=== PATIENT | female | born 1945 | race Caucasian/White ===

== ENCOUNTER 2020-04-01 18:51 | Emergency (ER) | payer MEDICARE, OTHER ==
--- NOTE | 2020-04-01 19:36 | ED Physician Documentation ---
PD HPI NVD - Stated complaint Stated Complaint: FEVER, DIZZY - Chief complaint Chief Complaint: General - History obtained from History obtained from: Patient - History of Present Illness Timing - onset: Today (Early this morning/still during the night, she awoke from sleep with nausea vomiting and diarrhea. This continued through the day but has tapered down through the afternoon. Still some loose stool and nauseated but has not vomited for 2 to 3 hours) Timing - details: Abrupt onset, Still present (Less severe symptoms than this morning but still nauseated and feeling generally weak with some muscle cramping. No abdominal pain per se) Associated symptoms: Loss of appetite. No: Fever, Abdominal pain, Hematemesis, Melena, Near syncope / syncope (but with general weakness) Contributing factors: No: Sick contact, Bad food, Recent antibiotics Improved by: No: Vomiting Worsened by: Eating Similar symptoms before: Has not had sx before Recently seen: Surgery (She had fusion of her great toe 2 weeks ago and the wou nd is well-healing without any infection. She was not on any antibiotics.) Review of Systems Constitutional: reports: Fatigue. denies: Fever, Chills, Myalgias Nose: denies: Rhinorrhea / runny nose, Congestion Throat: denies: Sore throat Cardiac: denies: Chest pain / pressure, Palpitations Respiratory: denies: Dyspnea GI: reports: Nausea, Vomiting, Diarrhea. denies: Abdominal Pain, Abdominal Swelling, Hematemesis, Bloody / black stool : denies: Dysuria, Frequency Neurologic: reports: Generalized weakness. 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 : Other HEENT: None Psych: None Musculoskeletal: Osteoarthritis Derm: None - Past Surgical History Past Surgical History: Yes Ortho: Carpal Tunnel surgery /JOCKEY'S AGENT: Hysterectomy - Present Medications Home Medications: Ambulatory Orders Medication Instructions Recorded Confirmed Estradiol [Estrace] 0.5 mg PO DAILY 11/27/13 04/13/16 Fluconazole [Diflucan] 150 mg PO ONCE #1 tablet 11/27/13 04/13/16 Gabapentin [Neurontin] 300 mg PO DAILY 11/27/13 04/13/16 Bacillus Coagulans [Probiotic] 1 each PO DAILY 04/13/16 04/13/16 Nitrofurantoin Monohyd/M-Cryst 100 mg PO BID 7 Days capsule 04/13/16 [Macrobid 100 mg Capsule] [place]-3 Fatty Acids [Fish Oil] 300 mg PO DAILY 04/13/16 04/13/16 Omeprazole 20 mg PO DAILY 04/13/16 04/13/16 Phenazopyridine [Pyridium] 200 mg PO TID 6 Days tablet 04/13/16 Diphenoxylate/Atropine [Lomotil] 1 each PO QID PRN #12 tablet 04/01/20 Ondansetron Odt [Zofran] 4 mg TL Q6H PRN #10 tablet 04/01/20 - Allergies Allergies/Adverse Reactions: Allergies Allergy/AdvReac Type Severity Reaction Status Date / Time acetaminophen [From Vicodin] Allergy Emesis Verified 04/01/20 18:59 atorvastatin Allergy Emesis Verified 04/01/20 19:05 ciprofloxacin [From Cipro] Allergy Emesis Verified 04/01/20 18:59 hydrocodone [From Vicodin] Allergy Emesis Verified 04/01/20 18:59 nitrofurantoin Allergy Rash Verified 04/01/20 19:05 - Social History Does the pt smoke?: No Smoking Status: Never smoker Does the pt drink ETOH?: No Does the pt have substance abuse?: No - Immunizations Immunizations are current?: Yes - POLST Patient has POLST: No PD ED PE NORMAL - Vitals Vital signs reviewed: Yes - General General: Alert and oriented X 3, No acute distress, Well developed/nourished - HEENT HEENT: Pharynx benign. No: Moist mucous membranes - Neck Neck: Supple, no meningeal sign, No adenopathy - Cardiac Cardiac: No murmur. No: RRR (regular but tachycardic) - Respiratory Respiratory: Clear bilaterally - Abdomen Abdomen: Normal bowel sounds, Soft, Non tender, Non distended, No organomegaly - Female Female : Deferred - Rectal Rectal: Deferred - Back Back: No CVA TTP - Derm Derm: Normal color, Warm and dry - Extremities Extremities: Normal ROM s pain, No edema, No calf tenderness / cord - Neuro Neuro: Alert and oriented X 3, No motor deficit, Normal speech Results - Vitals Vitals: Vital Signs - 24 hr 04/01/20 04/01/20 04/01/20 18:59 21:16 22:31 Temperature 37.0 C Heart Rate 110 H 86 91 Respiratory 16 16 Rate Blood Pressure 129/77 126/57 L 123/55 L O2 Saturation 96 97 96 Oxygen O2 Source Room air - Labs Labs: Microbiology 04/01/20 21:37 Campylobacter Antigen Assay - Final Stool - Loose Consistency Laboratory Tests 04/01/20 04/01/20 04/01/20 19:16 20:31 20:31 WBC 8.4 RBC 4.69 Hgb 14.3 Hct 42.7 MCV 91.0 MCH 30.5 MCHC 33.5 RDW 12.5 Plt Count 187 MPV 9.8 Neut # (Auto) 7.5 H Lymph # (Auto) 0.4 L Elliott # (Auto) 0.3 Eos # (Auto) 0.2 Baso # (Auto) 0.0 Absolute Nucleated RBC 0.00 Nucleated RBC % 0.0 Sodium 136 Potassium 3.8 Chloride 100 L Carbon Dioxide 27 Anion Gap 9.0 BUN 18 Creatinine 0.8 Estimated GFR (MDRD) 70 L Glucose 120 H Calcium 8.7 Magnesium 1.8 Total Bilirubin 0.6 AST 22 ALT 23 Alkaline Phosphatase 61 Total Protein 7.1 Albumin 4.0 Globulin 3.1 Albumin/Globulin Ratio 1.3 Lipase 25 Urine Color YELLOW Urine Clarity HAZY Urine pH 6.0 Ur Specific [place] 1.025 Urine Protein NEGATIVE Urine Glucose (UA) NEGATIVE Urine Ketones 40 H Urine Occult Blood NEGATIVE Urine Nitrite NEGATIVE Urine Bilirubin NEGATIVE Urine Urobilinogen 0.2 (NORMAL) Ur Leukocyte Esterase TRACE H Urine RBC 0-5 Urine WBC 0-3 Ur Squamous Epith Cells FEW Squamous Amorphous Sediment Moderate Urine Bacteria Rare Ur Microscopic Review INDICATED Urine Culture Comments INDICATED PD MEDICAL DECISION MAKING - ED course Complexity details: re-evaluated patient (Feeling improved after IV fluids and medications. Abdomen is still not tender.), considered differential (Sounds likely to be a an acute gastroenteritis versus food intolerance. There is no tenderness on abdominal exam so lower suspicion for diverticulitis or appendicitis), d/w patient Departure - Departure Disposition: 01 Home, Self Care Clinical Impression: Nausea vomiting and diarrhea Condition: Stable Record reviewed to determine appropriate education?: Yes Instructions: ED Diet Vomiting Diarrhea Follow-Up: Deb Workman ARNP [Primary Care Provider] - Prescriptions: Diphenoxylate/Atropine [Lomotil] 1 each PO QID PRN #12 tablet PRN Reason: Diarrhea Ondansetron Odt [Zofran] 4 mg TL Q6H PRN #10 tablet PRN Reason: Nausea / Vomiting Comments: Small frequent fluids and bland food this evening and tomorrow. Ondansetron every 4-6 hours if needed for nausea. I would anticipate this being better into tomorrow. I wrote a prescription for some more ondansetron for nausea and Lomotil for diarrhea if this persist to some degree. Otherwise recheck if continued symptoms beyond 1 to 2 days or if you have worsening symptoms of belly pain fever persistent vomiting or other concerns. Your stool cultures will result tomorrow and will call you if any treatment is needed or indicated from those results. Discharge Date/Time: 04/01/20 22:41
[2020-04-01] MEDS ORDERED: SODIUM CHLORIDE 0.9% 1,000 ML IV STA (20:08)
[2020-04-01] MEDS ORDERED: KETOROLAC 15 MG/ML VIAL IVP STA (20:08)
[2020-04-01] MEDS ORDERED: ONDANSETRON 4 MG/2 ML VIAL IVP STA (20:08)
[2020-04-01 20:38] LABS: BASOPHILS % (AUTO) 0.4 %; EOSINOPHILS # (AUTO) 0.2 10^3/uL (0.0-0.7); EOSINOPHILS % (AUTO) 2.1 %; HGB - HEMOGLOBIN 14.3 g/dL (12.0-16.0); LYMPHOCYTES # (AUTO) 0.4 10^3/uL (1.5-3.5); LYMPHOCYTES % (AUTO) 4.8 %; MEAN CORPUSCULAR HEMOGLOBIN 30.5 pg (27.0-31.0); MEAN CORPUSCULAR HGB CONC 33.5 g/dL (32.0-36.0); MEAN PLATELET VOLUME 9.8 fL (7.9-10.8); MONOCYTES # (AUTO) 0.3 10^3/uL (0.0-1.0); MONOCYTES % (AUTO) 3.6 %; NEUTROPHILS # (AUTO) 7.5 10^3/uL (1.5-6.6); NEUTROPHILS % (AUTO) 88.6 %; PLT - PLATELET COUNT 187 10^3/uL (130-450); RED BLOOD COUNT 4.69 10^6/uL (4.20-5.40); RED CELL DISTRIBUTION WIDTH 12.5 % (12.0-15.0); WHITE BLOOD COUNT 8.4 x10^3/uL (4.8-10.8)
[2020-04-01 20:41] LABS: BILIRUBIN,URINE NEGATIVE (NEGATIVE); GLUCOSE, URINE (UA) NEGATIVE (NEGATIVE); KETONES,URINE (UA) 40 mg/dL (NEGATIVE); LEUKOCYTE ESTERASE, URINE TRACE (NEGATIVE); NITRITE,URINE NEGATIVE (NEGATIVE); OCCULT BLOOD,URINE NEGATIVE (NEGATIVE); PROTEIN,URINE NEGATIVE (NEGATIVE); UROBILINOGEN,URINE 0.2 (NORMAL) E.U./dL (NORMAL)
[2020-04-01] MEDS ORDERED: LACTATED RINGERS 1,000 ML IV STA (20:42)
[2020-04-01 20:51] LABS: CLARITY,URINE HAZY (CLEAR)
[2020-04-01 20:52] LABS: ALBUMIN/GLOBULIN RATIO 1.3 (1.0-2.2); BILIRUBIN,TOTAL 0.6 mg/dL (0.2-1.0); CALCIUM 8.7 mg/dL (8.5-10.3); CREATININE 0.8 mg/dL (0.4-1.0); MAGNESIUM 1.8 mg/dL (1.7-2.8); TOTAL PROTEIN 7.1 g/dL (6.7-8.2)
[2020-04-01 21:03] LABS: AMORPHOUS SEDIMENT,UR Moderate /LPF; BACTERIA,URINE Rare /HPF (None Seen); RBC,URINE 0-5 /HPF (0-5); SQUAMOUS EPITHELIAL CELL,UR FEW Squamous (<= Few)
[2020-04-01] MEDS ORDERED: ONDANSETRON ODT 4 MG Prepack 2 TL PRN (22:20)
[2020-04-01] MEDS ORDERED: DIPHENOX/ATROPINE 2.5/0.025 MG TABLET PO STA (22:20)
[2020-04-01 22:32] VITALS: BP 123/55
== END 2020-04-01 22:41 | disposition home or self-care (01) ==
LOC: ED 18:51
DX: R11.2 Nausea with vomiting, unspecified (principal); R19.7 Diarrhea, unspecified
CPT/HCPCS: 80053; 81001; 83690; 83735; 85025; 87045; 87046; 87086; 96361; 96374; 99283; 99284; A9270; J7120; 81003; 87493

== ENCOUNTER 2023-09-24 18:46 | Emergency (ER) | payer MEDICARE, OTHER ==
[2023-09-24 19:03] VITALS: BP 151/90; O2SAT 97
[2023-09-24] MEDS ORDERED: BUFFERED LIDOCAINE 10 ML SYRINGE SUBQ STA (19:25)
--- NOTE | 2023-09-24 19:39 | ED Physician Documentation ---
PD HPI SKIN - Stated complaint Stated Complaint: LT HAND LAC - Chief complaint Chief Complaint: Laceration - History obtained from History obtained from: Patient - Additional information Additional information: 78-year-old female presents by private vehicle from home for accidental thumb laceration. Patient was cutting chocolate for chocolate cream pies when she excellently sliced her finger. She applied a bandage and presented for evaluation. Review of Systems Constitutional: denies: Fever, Chills : denies: Dysuria, Frequency, Hesitancy Skin: reports: Laceration (s). 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: Hysterectomy - Present Medications Home Medications: Ambulatory Orders Medication Instructions Recorded Confirmed Estradiol [Estrace] 0.5 mg PO DAILY 11/27/13 04/13/16 Fluconazole [Diflucan] 150 mg PO ONCE #1 tablet 11/27/13 04/13/16 Gabapentin [Neurontin] 300 mg PO DAILY 11/27/13 04/13/16 Bacillus Coagulans [Probiotic] 1 each PO DAILY 04/13/16 04/13/16 Nitrofurantoin Monohyd/M-Cryst 100 mg PO BID 7 Days capsule 04/13/16 [Macrobid 100 mg Capsule] [place]-3 Fatty Acids [Fish Oil] 300 mg PO DAILY 04/13/16 04/13/16 Omeprazole 20 mg PO DAILY 04/13/16 04/13/16 Phenazopyridine [Pyridium] 200 mg PO TID 6 Days tablet 04/13/16 Diphenoxylate/Atropine [Lomotil] 1 each PO QID PRN #12 tablet 04/01/20 Ondansetron Odt [Zofran] 4 mg TL Q6H PRN #10 tablet 04/01/20 - Allergies Allergies/Adverse Reactions: Allergies Allergy/AdvReac Type Severity Reaction Status Date / Time acetaminophen [From Vicodin] Allergy Emesis Verified 04/01/20 18:59 atorvastatin Allergy Emesis Verified 04/01/20 19:05 ciprofloxacin [From Cipro] Allergy Emesis Verified 04/01/20 18:59 hydrocodone [From Vicodin] Allergy Emesis Verified 04/01/20 18:59 nitrofurantoin Allergy Rash Verified 04/01/20 19:05 - Social History Does the pt smoke?: No Smoking Status: Never smoker Does the pt drink ETOH?: No Does the pt have substance abuse?: No - Immunizations Immunizations are current?: Yes - POLST Patient has POLST: No PD ED PE NORMAL - Vitals Vital signs reviewed: Yes - General General: Alert and oriented X 3, No acute distress, Well developed/nourished - Cardiac Cardiac: RRR - Respiratory Respiratory: No respiratory distress, Clear bilaterally - Derm Derm: Normal color, Warm and dry, Other (2cm laceration pad of L thumb with active venous bleeding) - Extremities Extremities: Normal ROM s pain, No edema - Neuro Neuro: Alert and oriented X 3, healthcare architect 2-12 intact, No motor deficit, Normal speech - Psych Psych: Normal mood, Normal affect Results - Vitals Vitals: Vital Signs - 24 hr 09/24/23 19:00 Temperature 36.8 C Heart Rate 78 Respiratory 18 Rate Blood Pressure 151/90 H O2 Saturation 97 Oxygen O2 Source Room air Procedures - Laceration (location) Finger left Length in cm: 2 Wound type: Linear, Superficial, Clean Neurovascular status: Sensory intact, Motor intact, Vascular intact Tendon involvement: Tendon intact Anesthesia: Lidocaine 1% Wound preparation: Irrigated copiously NS Skin layer closure: Nylon, Sutures - enter # (6) Other: Patient tolerated well, No complications, Neurovascular intact, Dressing applied, Tetanus booster given PD Medical Decision Making - ED course Complexity details: reviewed results, re-evaluated patient, considered differential, d/w patient ED course: Accidental thumb laceration. Wound is with clean margins. Digital block of the left thumb performed by myself, subsequently laceration was repaired per pr ocedure notes. Wound care instructions discussed with patient at bedside. Departure - Departure Disposition: 01 Home, Self Care Clinical Impression: Laceration Condition: Stable Instructions: ED Laceration Hand Comments: Keep your wound clean and dry. Sutures should be removed in 5 to 7 days. If you notice redness, swelling, drainage from the wound please return for repeat evaluation. Forms: PCP List
== END 2023-09-24 20:14 | disposition home or self-care (01) ==
LOC: ED 18:46
DX: S61.012A Laceration without foreign body of left thumb without damage to nail, initial encounter (principal); W26.0XXA Contact with knife, initial encounter
CPT/HCPCS: 12001; 99282